=== PATIENT | female | born 1930 | race Two or more races ===

== ENCOUNTER 2018-03-18 08:02 | Outpatient (CLI) | payer OTHER ==
[~2018-03-18 08:02] MED LIST: MOTRIN800 MG PO
== END 2018-03-18 16:07 | disposition home or self-care (01) ==
LOC: RAD 08:02
DX: R13.11 Dysphagia, oral phase (principal)

== ENCOUNTER 2019-07-18 07:13 | Outpatient (CLI) | payer OTHER | END 2019-07-18 07:19 | disposition home or self-care (01) | LOC: RAD 07:13 | DX: M25.561 Pain in right knee (principal); M25.562 Pain in left knee ==

== ENCOUNTER 2020-01-24 07:11 | Outpatient (CLI) | payer OTHER | END 2020-01-24 07:16 | disposition home or self-care (01) | LOC: RAD 07:11 | PROVIDERS: ATTEND Internal Medicine Cardiovascular Disease | DX: M17.0 Bilateral primary osteoarthritis of knee (principal) ==

== ENCOUNTER → 2020-02-07 | Outpatient (CLI) | payer OTHER | END | disposition home or self-care (01) | LOC: MRI 07:45 | PROVIDERS: ATTEND Physical Medicine & Rehabilitation | DX: M25.562 Pain in left knee (principal) | CPT/HCPCS: 73721 ==

== ENCOUNTER → 2020-03-02 10:56 | Outpatient (CLI) | payer OTHER | END | disposition home or self-care (01) | LOC: LAB 10:56 | PROVIDERS: ATTEND Physical Medicine & Rehabilitation | DX: Z20.828 Contact with and (suspected) exposure to other viral communicable diseases (principal); Z11.59 Encounter for screening for other viral diseases ==

== ENCOUNTER 2020-04-10 14:03 | Outpatient (CLI) | payer OTHER | END 2020-04-10 15:22 | disposition home or self-care (01) | LOC: LAB 14:03 | PROVIDERS: ATTEND Physical Medicine & Rehabilitation | DX: Z20.828 Contact with and (suspected) exposure to other viral communicable diseases (principal); Z11.59 Encounter for screening for other viral diseases ==

== ENCOUNTER → 2020-05-07 | Outpatient (CLI) | payer OTHER | END | disposition home or self-care (01) | LOC: PPH VACUNA 14:22 | PROVIDERS: ATTEND Emergency Medicine Pediatric Emergency Medicine | DX: Z23 Encounter for immunization (principal) ==

== ENCOUNTER → 2020-11-27 11:23 | Outpatient (CLI) | payer OTHER | END | disposition home or self-care (01) | LOC: LAB 11:23 | PROVIDERS: ATTEND Radiology Diagnostic Radiology | DX: G30.8 Other Alzheimer's disease (principal) ==

== ENCOUNTER 2020-12-13 07:44 | Outpatient (CLI) | payer OTHER | END 2020-12-13 07:51 | disposition home or self-care (01) | LOC: MRI 07:44 | PROVIDERS: ATTEND Psychiatry & Neurology Neurology | DX: G93.89 Other specified disorders of brain (principal); G30.8 Other Alzheimer's disease | CPT/HCPCS: 70553; A9575 ==

== ENCOUNTER 2021-01-11 09:14 | Outpatient (CLI) | payer OTHER | END 2021-01-11 09:16 | disposition home or self-care (01) | LOC: LAB 09:14 | PROVIDERS: ATTEND Podiatrist Foot Surgery | DX: D68.8 Other specified coagulation defects (principal); E11.9 Type 2 diabetes mellitus without complications; M20.11 Hallux valgus (acquired), right foot ==

== ENCOUNTER 2021-04-10 08:00 | Outpatient (CLI) | payer OTHER | END 2021-04-10 08:30 | disposition home or self-care (01) | LOC: PPH VACUNA 08:00 | PROVIDERS: ATTEND Emergency Medicine Pediatric Emergency Medicine | DX: Z23 Encounter for immunization (principal) ==

== ENCOUNTER 2021-04-19 08:09 | Outpatient (CLI) | payer OTHER | END 2021-04-19 08:12 | disposition home or self-care (01) | LOC: LAB 08:09 | PROVIDERS: ATTEND Internal Medicine Cardiovascular Disease | DX: E03.8 Other specified hypothyroidism (principal); I11.9 Hypertensive heart disease without heart failure; E78.2 Mixed hyperlipidemia ==

== ENCOUNTER 2021-08-27 09:20 | Outpatient (CLI) | payer OTHER | END 2021-08-27 09:30 | disposition home or self-care (01) | LOC: PPH VACUNA 09:20 | PROVIDERS: ATTEND Emergency Medicine Pediatric Emergency Medicine | DX: Z23 Encounter for immunization (principal) ==